=== PATIENT | male | born 1955 | race American Indian/Alaskan Native ===

== ENCOUNTER 2021-01-20 19:18 | Inpatient (IN) | payer MEDICARE ==
--- NOTE | 2021-01-20 19:31 | Emergency Department Report ---
HPI - General Time Seen by Provider: 01/20/21 19:20 - HPI HPI: Charge nurse triage/room 1 The patient is a 65-year-old male present with a chief complaint mental status/right facial droop. Patient has a history of previous CVA with right- sided deficits however this evening the patient was noted to have right-sided facial droop. The family who accompanies the patient states that the patient rarely speaks and often just sits in his chair slumped over at baseline. They were reportedly at a democrat/wedding and the best time that the family member can recall where the patient was behaving normally was approximately 15:00 today. Patient does not respond verbally to questions and only localizes with sternal rub ED Past Medical Hx - Past Medical History Hx Hypertension: Yes Hx CVA: Yes - Surgical History Past Surgical History?: No - Family History Family history: no significant - Social History Smoking Status: Unknown if ever smoked ED Review of Systems ROS: Stated complaint: STROKE Other details as noted in HPI Comment: Unobtainable due to pts medical conditions Physical Exam - Physical Exam Physical Exam: GENERAL: The patient is well-developed well-nourished male lying on stretcher drooling. [] HEENT: Normocephalic. Atraumatic. Patient has moist mucous membranes. NECK: Supple. Trachea midline CHEST/LUNGS: Clear to auscultation. There is no respiratory distress noted. HEART/CARDIOVASCULAR: Regular. There is no tachycardia. There is no gallop rub or murmur. ABDOMEN: Abdomen is soft, nontender. Patient has normal bowel sounds. There is no abdominal distention. SKIN: There is no rash. There is no edema. There is no diaphoresis. NEURO: The patient is is not cooperative with neurologic exam. Patient local izes to sternal rub. MUSCULOSKELETAL: There is no evidence of acute injury. ED Course - Consultations Consultation #1: 01/20/21 19:40 Case discussed with telemetry neurologist- no TPA, doubt LVO. Admit for MRI ED Medical Decision Making - Lab Data Result diagrams: 01/20/21 19:46 01/20/21 19:46 Laboratory Tests 01/20/21 01/20/21 01/20/21 19:46 19:46 19:46 WBC 6.5 RBC 4.73 Hgb 15.2 Hct 47.1 H MCV 100 H MCH 32 MCHC 32 RDW 13.3 Plt Count 196 Lymph % (Auto) 21.0 [place] % (Auto) 6.5 Eos % (Auto) 1.6 Baso % (Auto) 0.6 Lymph # (Auto) 1.4 [place] # (Auto) 0.4 Eos # (Auto) 0.1 Baso # (Auto) 0.0 Seg Neutrophils % 70.3 H Seg Neutrophils # 4.5 PT 14.5 INR 1.02 APTT 28.5 Thrombin Time 18.1 Sodium 147 H Potassium 4.2 Chloride 101.4 Carbon Dioxide 23 Anion Gap 27 BUN 12 Creatinine 1.2 Estimated GFR > 60 BUN/Creatinine Ratio 10 Glucose 228 H Calcium 10.2 Total Bilirubin 0.30 AST 15 ALT 11 Alkaline Phosphatase 77 Ammonia Total Creatine Kinase 71 CK-MB (CK-2) 1.5 CK-MB (CK-2) Rel Index 2.1 Troponin T < 0.010 Total Protein 8.5 H Albumin 4.6 Albumin/Globulin Ratio 1.2 Plasma/Serum Alcohol 01/20/21 01/20/21 19:46 19:46 WBC RBC Hgb Hct MCV MCH MCHC RDW Plt Count Lymph % (Auto) [place] % (Auto) Eos % (Auto) Baso % (Auto) Lymph # (Auto) [place] # (Auto) Eos # (Auto) Baso # (Auto) Seg Neutrophils % Seg Neutrophils # PT INR APTT Thrombin Time Sodium Potassium Chloride Carbon Dioxide Anion Gap BUN Creatinine Estimated GFR BUN/Creatinine Ratio Glucose Calcium Total Bilirubin AST ALT Alkaline Phosphatase Ammonia 39.0 Total Creatine Kinase CK-MB (CK-2) CK-MB (CK-2) Rel Index Troponin T Total Protein Albumin Albumin/Globulin Ratio Plasma/Serum Alcohol < 0.01 - EKG Data -: EKG Interpreted by Me EKG shows normal: sinus rhythm Rate: normal - EKG Data When compared to previous EKG there are: previous EKG unavailable Interpretation: nonspecific ST-T wave dominique (T wave inversion lead I), other (Poor baseline given patient movement) - Radiology Data Radiology results: report reviewed (CT head), image reviewed (CT head) [facility] [address] [place] [address] Cat Scan Report Signed Patient: DAVON PALACIOS JR MR#: [id number] : 1955 Acct:[id number] Age/Sex: 65 / M ADM Date: 01/20/21 Loc: ED Attending Dr: Ordering Physician: KATHY HUNTER MD Date of Service: 01/20/21 Procedure(s): CT head/brain wo con Accession Number(s): [id number] cc: KATHY HUNTER MD CT head/brain wo con INDICATION: Altered mental status, right facial droop. TECHNIQUE: Rout ine CT head. All CT scans at this location are performed using CT dose reduction for ALARA by means of automated exposure control. COMPARISON: None. FINDINGS: Please note patient is severely contracted and cannot be positioned correctly for scanning. Intracranial: Large area encephalomalacia in the right MCA territory from prior infarction. Prior left occipital lobe infarction and as well as small area of prior infarction seen in the medial region of the precentral and postcentral gyri. No definite acute infarction. No intracranial hemorrhage. No extra axial collection. Ex vacuo dilation of the ventricles.. No herniation. Sinuses: Paranasal sinuses and mastoid air cells are essentially clear. Orbits: Globes are intact. Calvarium: No acute fracture. IMPRESSION: 1. No evidence of acute infarction. 2. Multifocal remote infarctions. Informed Dr. Hunter at 6:50 Signer Name: Hero Renee MD Signed: 01/20/2021 7:51 PM Workstation Name: [id number] Transcribed By: ALONZO Dictated By: Hero Renee MD Electronically Authenticated By: Hero Renee MD Signed Date/Time: 01/20/211950 DD/ 46 TD/TT: Print Cancel - Differential Diagnosis CVA, altered mental status, hepatic encephalopathy, ICH Critical care attestation.: If time is entered above; I have spent that time in minutes in the direct care of this critically ill patient, excluding procedure time. ED Disposition Clinical Impression: Altered mental status Disposition: ADMITTED INPATIENT Is pt being admited?: Yes Does the pt Need Aspirin: Yes Condition: Fair Referrals: PRIMARY CARE, [Primary Care Provider] - 3-5 Days Time of Disposition: 21:17 (Hospitalist called (Dr. Flores))
[2021-01-20] MEDS ORDERED: ASPIRIN 300 MG RECT SUPP PR ONE (19:40)
[2021-01-20 19:54] LABS: Basophils % (Auto) 0.6 % (0.0-1.8); Eosinophils # (Auto) 0.1 K/mm3 (0.0-0.4); Eosinophils % (Auto) 1.6 % (0.0-4.3); Hematocrit 47.1 % (35.5-45.6); Hemoglobin 15.2 gm/dl (11.8-15.2); Lymphocytes # (Auto) 1.4 K/mm3 (1.2-5.4); Mean Corpuscular HGB Conc 32 % (32-34); Mean Corpuscular Volume 100 fl (84-94); Monocytes # (Auto) 0.4 K/mm3 (0.0-0.8); Monocytes % (Auto) 6.5 % (0.0-7.3); Platelet Count 196 K/mm3 (140-440); Red Blood Count 4.73 M/mm3 (3.65-5.03); Red Cell Distribution Width 13.3 % (13.2-15.2)
--- NOTE | 2021-01-20 19:56 | Cat Scan Report ---
CT head/brain wo con INDICATION: Altered mental status, right facial droop. TECHNIQUE: Routine CT head. All CT scans at this location are performed using CT dose reduction for A CYNTHIA by means of automated exposure control. COMPARISON: None. FINDINGS: Please note patient is severely contracted and cannot be positioned correctly for scanning. Intracranial: Large area encephalomalacia in the right MCA territory from prior infarction. Prior lef t occipital lobe infarction and as well as small area of prior infarction seen in the medial region o f the precentral and postcentral gyri. No definite acute infarction. No intracranial hemorrhage. No e xtra axial collection. Ex vacuo dilation of the ventricles.. No herniation. Sinuses: Paranasal sinuses and mastoid air cells are essentially clear. Orbits: Globes are intact. Calvarium: No acute fracture. IMPRESSION: 1. No evidence of acute infarction. 2. Multifocal remote infarctions. Informed Dr. Lane at 6:50 Signer Name: Hero Renee MD Signed: 01/20/2021 7:51 PM Workstation Name: [id number]
[2021-01-20 20:28] LABS: INR 1.02 (0.87-1.13); Partial Thromboplastin Time 28.5 Sec. (24.2-36.6)
[2021-01-20 20:29] LABS: Thrombin Time 18.1 Sec. (15.1-19.6)
[2021-01-20 20:32] LABS: Creatine Kinase MB 1.5 ng/mL (0.0-4.0)
--- NOTE | 2021-01-20 20:32 | Consultation ---
History of Present Illness History of present illness: [place] [facility] Consult Note # Demographics Consult Type: Acute Stroke Level 1 (0-4.5 hrs) Patient Location: Emergency Room First Name: Blake Hernandez Last Name: Ariel Date of : 1955 Age: 65 Gender: Male Facility: [facility] Time of Initial Page ( Time): 01/20/2021, 19:21 Time of Return Call ( Time): 01/20/2021, 19:22 # HPI History: 65 year-old male with prior strokes and residual right-sided weakness presents with right facial weakness worse than baseline. CT is negative for acute pathology. He was last known normal at 2 PM. # Scores Time of exam and NIHSS ( Time): 01/20/2021, 19:40 Level of Consciousness 1a: [0] = Alert; keenly responsive LOC Questions 1b: [2] = Answers neither correctly LOC Commands 1c: [2] = Performs neither correctly Best Gaze 2: [0] = Normal Visual 3: [0] = No visual loss Facial Palsy 4: [1] = Minor paralysis Motor Arm Left 5a: [2] = Some effort against gravity Motor Arm Right 5b: [2] = Some effort against gravity Motor Leg Left 6a: [3] = No effort against gravity Motor Leg Right 6b: [3] = No effort against gravity Limb Ataxia 7: [0] = Absent Sensory 8: [0] = Normal Best Language 9: [2] = Severe aphasia Dysarthria 10: [2] = Severe dysarthria Extinction and Inattention 11: [0] = No abnormality NIHSS Total: 19 # Exam Vitals: vital signs reviewed # PMH-FH-SH Past Medical History: hyperlipidemia stroke # Assessment Impression: Right facial weakness - suspect symptoms related to chronic stroke, cannot exclude new stroke # Plan Thrombolytic/Intervention: NOT IV Thrombolysis or IA Intervention candidate Thrombolytic Exclusion: > 4.5 hours Intraarterial Exclusion: non-disabling Imaging: (urgency: routine): If symptoms persist without clear cause, consider brain MRI. Other: telemetry monitoring I have discussed my recommendations with the referring provider Disposition: observation Medications and Allergies Allergies Allergy/AdvReac Type Severity Reaction Status Date / Time No Known Allergies Allergy Verified 01/20/21 20:21 Physical Examination - Vital Signs Vital Signs: Vital Signs Resp 16 01/20/21 19:43 Results - Laboratory Findings CBC and BMP: 01/20/21 19:46 01/20/21 19:46 Abnormal Lab Findings: Abnormal Labs 01/20/21 19:46 Hct 47.1 H MCV 100 H Seg Neutrophils % 70.3 H
[2021-01-20 20:33] LABS: Alanine Aminotransferase 11 units/L (7-56); Albumin 4.6 g/dL (3.9-5); BUN/Creatinine Ratio 10; Blood Urea Nitrogen 12 mg/dL (9-20); Calcium 10.2 mg/dL (8.4-10.2); Hemolysis Index 12
[2021-01-20] MEDS ORDERED: SODIUM CHLORIDE 0.9% 1000 ML 1,000 ML IV ONE (20:41)
[2021-01-20] MEDS ORDERED: oxyCODONE /ACETAMINOPHEN 5-325MG TAB PO PRN (21:39)
[2021-01-20] MEDS ORDERED: ALBUTEROL 2.5 MG/3 ML NEBU IH PRN (21:39)
[2021-01-20] MEDS ORDERED: DEXTROSE 50% IN WATER (25GM) 50 ML SYRINGE IV PRN (21:39)
[2021-01-20] MEDS ORDERED: HYDROmorphone 1 MG/1 ML INJ IV PRN (21:39)
[2021-01-20] MEDS ORDERED: ACETAMINOPHEN 325 MG TAB PO PRN (21:39)
[2021-01-20] MEDS ORDERED: ONDANSETRON 4 MG/2 ML INJ IV PRN (21:39)
--- NOTE | 2021-01-20 21:49 | History and Physical Report ---
History of Present Illness Date of examination: 01/20/21 Date of admission: 01/20/21 Chief complaint: Altered mental status Right facial droop History of present illness: 65-year-old male with past medical history of stroke and right-sided weakness was brought to the emergency room because of altered mental status/right facial droop. The family who accompanies the patient states that the patient rarely speaks and often just sits in his chair slumped over at baseline. They were reportedly at a democrat/wedding and the best time that the family member can recall where the patient was behaving normally was approximately 15:00 today. Patient does not respond verbally to questions and only localizes with sternal rub In the emergency room initial CT scan shows no evidence of acute infection. Multifocal remote infarction. Subsequently patient was seen and evaluated by telemetry neurology who recommends MRI of the brain. Med rec is not available Past History Past Medical History: hyperlipidemia, stroke Medications and Allergies Allergies Allergy/AdvReac Type Severity Reaction Status Date / Time No Known Allergies Allergy Verified 01/20/21 20:21 Active Meds: Active Medications Sodium Chloride (Nacl 0.9% 1000 Ml) 1,000 mls @ 250 mls/hr IV ONCE ONE Stop: 01/21/21 00:40 Last Admin: 01/20/21 20:59 Dose: 250 mls/hr Documented by: Review of Systems All systems: negative Constitutional: weakness Neurological: change in mentation, other (Right facial droop) Exam - Constitutional Vitals: Temp Pulse Resp BP Pulse Ox 98.0 F 76 14 166/89 98 01/20/21 20:11 01/20/21 20:00 01/20/21 20:00 01/20/21 20:11 01/20/21 21:33 General appearance: Present: no acute distress, well-nourished - EENT Eyes: Present: PERRL ENT: hearing intact, clear oral mucosa - Neck Neck: Present: supple, normal ROM - Respiratory Respiratory effort: normal Respiratory: bilateral: CTA - Cardiovascular Heart Sounds: Present: S1 & S2. Absent: rub, click - Extremities Extremities: pulses symmetrical, No edema Peripheral Pulses: within normal limits - Abdominal General gastrointestinal: Present: soft, non-tender, non-distended, normal bowel sounds Male genitourinary: Present: normal - Integumentary Integumentary: Present: clear, warm, dry - Musculoskeletal Musculoskeletal: gait normal, strength equal bilaterally - Psychiatric Psychiatric: other (Altered mental status) - Neurologic Neurologic: CNII-XII intact, other (Altered mental status, right facial droop) HEART Score - HEART Score Troponin: Troponin T < 0.010 ng/mL (0.00-0.029) 01/20/21 19:46 Results - Labs CBC & Chem 7: 01/20/21 19:46 01/20/21 19:46 Labs: Laboratory Last Values WBC 6.5 K/mm3 (4.5-11.0) 01/20/21 19:46 RBC 4.73 M/mm3 (3.65-5.03) 01/20/21 19:46 Hgb 15.2 gm/dl (11.8-15.2) 01/20/21 19:46 Hct 47.1 % (35.5-45.6) H 01/20/21 19:46 MCV 100 fl (84-94) H 01/20/21 19:46 MCH 32 pg (28-32) 01/20/21 19:46 MCHC 32 % (32-34) 01/20/21 19:46 RDW 13.3 % (13.2-15.2) 01/20/21 19:46 Plt Count 196 K/mm3 (140-440) 01/20/21 19:46 Lymph % (Auto) 21.0 % (13.4-35.0) 01/20/21 19:46 [place] % (Auto) 6.5 % (0.0-7.3) 01/20/21 19:46 Eos % (Auto) 1.6 % (0.0-4.3) 01/20/21 19:46 Baso % (Auto) 0.6 % (0.0-1.8) 01/20/21 19:46 Lymph # (Auto) 1.4 K/mm3 (1.2-5.4) 01/20/21 19:46 [place] # (Auto) 0.4 K/mm3 (0.0-0.8) 01/20/21 19:46 Eos # (Auto) 0.1 K/mm3 (0.0-0.4) 01/20/21 19:46 Baso # (Auto) 0.0 K/mm3 (0.0-0.1) 01/20/21 19:46 Seg Neutrophils % 70.3 % (40.0-70.0) H 01/20/21 19:46 Seg Neutrophils # 4.5 K/mm3 (1.8-7.7) 01/20/21 19:46 PT 14.5 Sec. (12.2-14.9) 01/20/21 19:46 INR 1.02 (0.87-1.13) 01/20/21 19:46 APTT 28.5 Sec. (24.2-36.6) 01/20/21 19:46 Thrombin Time 18.1 Sec. (15.1-19.6) 01/20/21 19:46 Sodium 147 mmol/L (137-145) H 01/20/21 19:46 Potassium 4.2 mmol/L (3.6-5.0) 01/20/21 19:46 Chloride 101.4 mmol/L (98-107) 01/20/21 19:46 Carbon Dioxide 23 mmol/L (22-30) 01/20/21 19:46 Anion Gap 27 mmol/L 01/20/21 19:46 BUN 12 mg/dL (9-20) 01/20/21 19:46 Creatinine 1.2 mg/dL (0.8-1.3) 01/20/21 19:46 Estimated GFR > 60 ml/min 01/20/21 19:46 BUN/Creatinine Ratio 10 % 01/20/21 19:46 Glucose 228 mg/dL (75-100) H 01/20/21 19:46 Calcium 10.2 mg/dL (8.4-10.2) 01/20/21 19:46 Total Bilirubin 0.30 mg/dL (0.1-1.2) 01/20/21 19:46 AST 15 units/L (5-40) 01/20/21 19:46 ALT 11 units/L (7-56) 01/20/21 19:46 Alkaline Phosphatase 77 units/L (35-129) 01/20/21 19:46 Ammonia 39.0 umol/L (25-60) 01/20/21 19:46 Total Creatine Kinase 71 units/L (55-170) 01/20/21 19:46 CK-MB (CK-2) 1.5 ng/mL (0.0-4.0) 01/20/21 19:46 CK-MB (CK-2) Rel Index 2.1 (0-4) 01/20/21 19:46 Troponin T < 0.010 ng/mL (0.00-0.029) 01/20/21 19:46 Total Protein 8.5 g/dL (6.3-8.2) H 01/20/21 19:46 Albumin 4.6 g/dL (3.9-5) 01/20/21 19:46 Albumin/Globulin Ratio 1.2 % 01/20/21 19:46 Plasma/Serum Alcohol < 0.01 % (0-0.07) 01/20/21 19:46 - Imaging and Cardiology CT Scan - head: report reviewed Assessment and Plan VTE prophylaxis?: Mechanical Plan of care discussed with patient/family: Yes - Patient Problems (1) Acute metabolic encephalopathy Current Visit: Yes Status: Acute Plan to address problem: Suspect is secondary to a stroke. Admit the patient to the medical telemetry. NPO. Normal saline at the rate of 100 cc/h. Aspirin 325 mg p.o. daily. Lipitor 40 mg p.o. daily. MRI of the brain MRA of the brain and neck with and without contrast. PT OT any speech evaluation. Neurology evaluation. Echocardiogram (2) Stroke Current Visit: Yes Status: Acute Plan to address problem: NPO. Normal saline at the rate of 100 cc/h. Aspirin 325 mg p.o. daily. Lipitor 40 mg p.o. daily. MRI of the brain MRA of the brain and neck with and without contrast. PT OT any speech evaluation. Neurology evaluation. Echocardiogram (3) Hyperglycemia Current Visit: Yes Status: Acute Plan to address problem: Humalog sliding scale Accu-Chek every 6 hours with moderate dose coverage. Diabetic education. BMP in the morning (4) Hyperlipidemia Current Visit: Yes Status: Acute Plan to address problem: Lipitor 40 mg p.o. daily. We recheck the lipid panel. (5) DVT prophylaxis Current Visit: Yes Status: Acute Plan to address problem: SCD for DVT prophylaxis. Pepcid 20 mg p.o. twice daily for GI prophylaxis. Patient is a full code
[2021-01-20] MEDS: FAMOTIDINE 20 MG/2 ML INJ IV SCH (22:58)
[2021-01-20] MEDS: hydrALAZINE 20 MG/1 ML INJ IV PRN (23:10)
[2021-01-21] MEDS: INSULIN LISPRO 100 UNIT/ML SUB-Q SCH ×4 (01:29→17:53)
[2021-01-21] MEDS ORDERED: IPRATROPIUM/ALBUTEROL SULFATE 3 ML AMPUL.NEB IH SCH (02:00)
[2021-01-21] MEDS: SODIUM CHLORIDE 0.9% 1000 ML 1,000 ML IV SCH ×2 (05:51→16:53)
[2021-01-21 06:54] LABS: Basophils % (Auto) 0.3 % (0.0-1.8); Eosinophils # (Auto) 0.1 K/mm3 (0.0-0.4); Eosinophils % (Auto) 1.2 % (0.0-4.3); Hematocrit 42.5 % (35.5-45.6); Hemoglobin 14.1 gm/dl (11.8-15.2); Lymphocytes # (Auto) 1.3 K/mm3 (1.2-5.4); Lymphocytes % (Auto) 15.4 % (13.4-35.0); Mean Corpuscular HGB Conc 33 % (32-34); Mean Corpuscular Volume 98 fl (84-94); Monocytes # (Auto) 0.7 K/mm3 (0.0-0.8); Platelet Count 191 K/mm3 (140-440); Red Blood Count 4.35 M/mm3 (3.65-5.03); Red Cell Distribution Width 13.4 % (13.2-15.2)
[2021-01-21 07:01] LABS: BUN/Creatinine Ratio 13; Blood Urea Nitrogen 10 mg/dL (9-20); Calcium 9.1 mg/dL (8.4-10.2); Chol/HDL Ratio 3.32 %; HDL Cholesterol 59 mg/dL (40-59); Hemolysis Index 18; LDL Cholesterol,Direct 127 mg/dL (50-130)
--- NOTE | 2021-01-21 08:41 | Consultation ---
History of Present Illness Consult date: 01/21/21 Reason for Consult: altered mentation and increase right facial droop. History of present illness: Altered mental status Right facial droop History of present illness: 65-year-old male with past medical history of stroke and left-sided weakness was brought to the emergency room because of altered mental status/right facial droop. The family who accompanies the patient states that the patient rarely speaks and often just sits in his chair slumped over at baseline. They were reportedly at a libertarian/wedding and the best time that the family member can recall where the patient was behaving normally was approximately 15:00 today. Patient does not respond verbally to questions and only localizes with sternal rub. In the emergency room initial CT scan shows no evidence of acute infection. Multifocal remote infarction. Subsequently patient was seen and evaluated by telemetry neurology who recommends MRI of the brain. pt. started on ASA NIH# 19 Med rec is not available Past History Past Medical History: hyperlipidemia,multiple stroke Medications and Allergies Allergies Allergy/AdvReac Type Severity Reaction Status Date / Time No Known Allergies Allergy Verified 01/20/21 20:21 Active Meds: Active Medications Sodium Chloride (Nacl 0.9% 1000 Ml) 1,000 mls @ 250 mls/hr IV ONCE ONE Stop: 01/21/21 00:40 Last Admin: 01/20/21 20:59 Dose: 250 mls/hr Documented by: Review of Systems All systems: negative Constitutional: weakness Neurological: change in mentation, other (Right facial droop) Past History Past Medical History: hyperlipidemia, stroke Medications and Allergies Allergies Allergy/AdvReac Type Severity Reaction Status Date / Time No Known Allergies Allergy Verified 01/20/21 20:21 Active Meds: Active Medications Acetaminophen (Acetaminophen 325 Mg Tab) 650 mg PO Q4H PRN PRN Reason: Pain MILD(1-3)/Fever >100.5/SMYTH Albuterol (Albuterol 2.5 Mg/3 Ml Nebu) 2.5 mg IH Q4HRT PRN PRN Reason: Shortness Of Breath Aspirin (Aspirin 325 Mg Tab) 325 mg PO QDAY JOAN Atorvastatin Calcium (Atorvastatin 40 Mg Tab) 40 mg PO QHS JOAN Last Admin: 01/20/21 22:36 Dose: Not Given Documented by: Dextrose (Dextrose 50% In Water (25gm) 50 Ml Syringe) 50 ml IV Q30MIN PRN; Protocol PRN Reason: Hypoglycemia Famotidine (Famotidine 20 Mg/2 Ml Inj) 20 mg IV BID [facility] Last Admin: 01/20/21 22:58 Dose: 20 mg Documented by: Hydralazine HCl (Hydralazine 20 Mg/1 Ml Inj) 10 mg IV Q6H PRN PRN Reason: sys >160 Last Admin: 01/20/21 23:10 Dose: 10 mg Documented by: Hydromorphone HCl (Hydromorphone 1 Mg/1 Ml Inj) 0.5 mg IV Q3H PRN PRN Reason: Pain , Severe (7-10) Sodium Chloride (Nacl 0.9% 1000 Ml) 1,000 mls @ 100 mls/hr IV DIRECT JOAN Last Admin: 01/21/21 05:51 Dose: 100 mls/hr Documented by: Insulin Human Lispro (Insulin Lispro 100 Unit/Ml) 0 unit SUB-Q Q6HR [facility]; Protocol Last Admin: 01/21/21 05:53 Dose: Not Given Documented by: Ondansetron HCl (Ondansetron 4 Mg/2 Ml Inj) 4 mg IV Q8H PRN PRN Reason: Nausea And Vomiting Oxycodone/Acetaminophen (Oxycodone /Acetaminophen 5-325mg Tab) 1 tab PO Q6H PRN PRN Reason: Pain, Moderate (4-6) Sodium Chloride (Sodium Chloride 0.9% 10 Ml Flush Syringe) 10 ml IV BID JOAN Sodium Chloride (Sodium Chloride 0.9% 10 Ml Flush Syringe) 10 ml IV PRN PRN PRN Reason: LINE FLUSH Physical Examination - Vital Signs Vital Signs: Vital Signs Resp 16 01/20/21 19:43 - Constitutional General appearance: uncomfortable - EENT EENT: Present: PERRL, mucous membranes moist - Respiratory Respiratory: Present: lungs clear, rhonchi - Cardiovascular Cardiovascular: Present: regular rate, normal S1, normal S2 Extremities: Present: no peripheral edema bilatateraly, no clubbing, cyanosis - Gastrointestinal Gastrointestinal: Present: normoactive bowel sounds - Integumentary Integumentary: Present: normal - Neurologic Cranial nerve examination: PERRL, EOMI, other (left facial droop , ) Speech examination: other (not respond to verbal command at time had staring spell and right side intermittent jerking ) Detailed motor examination: other (left side flaccid upper and lower , increase tone right side and resist movment , withdraw right leg and arm to stimuli , difficult to assess visual field .) - Level of Consciousness 1a. Level of Consciousness: arousable/minor stimuli - LOC Questions 1b. LOC Questions: answers no questions correctly - LOC Command 1c. LOC Commands: performs no tasks correctly - Best Gaze 2. Best Gaze: partial gaze palsy - Visual 3. Visual: partial hemianopia - Facial Palsy 4. Facial Palsy: minor paralysis - Motor Arm 5a. Motor Arm Left: some gravity effort 5b. Motor Arm Right: drift - Motor Leg 6a. Motor Leg Left: no gravity effort 6b. Motor Leg Right: drift - Limb Ataxia 7. Limb Ataxia: absent - Sensory 8. Sensory: normal - Best Language 9. Best Language: no aphasia - Dysarthria 10. Dysarthria: normal - Extinction and Inattention 11. Extinction/Inattention: no abnormality - Scoring Total Score: 15 Stroke Severity: Moderate Stroke Results - Laboratory Findings CBC and BMP: 01/21/21 05:24 01/21/21 05:24 Abnormal Lab Findings: Abnormal Labs 01/20/21 01/20/21 01/21/21 19:46 19:46 01:37 EST Hct 47.1 H MCV 100 H [place] % (Auto) Seg Neutrophils % 70.3 H Sodium 147 H Glucose 228 H POC Glucose 167 H Total Protein 8.5 H 01/21/21 01/21/21 01/21/21 05:24 05:24 06:36 Hct MCV 98 H [place] % (Auto) 8.0 H Seg Neutrophils % 75.1 H Sodium Glucose 126 H POC Glucose 122 H Total Protein Assessment and Plan Assessment and Plan VTE prophylaxis?: Mechanical Plan of care discussed with patient/family: Yes - Patient Problems # Acute intermittent encephalopathy -noted on evaluation today he is with intermittent right arm stiffness and starring spell last 10-15 seconds -R/O Seizure -CT brain is remarkable for multi infarct mostly cortical in several distribution r/o AF -On ASA 325 mg po or rectally - quality assurance monitor body -CTA brain and neck pending -MRI brain wo Gd pending -echo -EEG -Ativan 2 mg Iv prn for seizure -Start Keppra IV loading dose 1000 mg now then 500 mg IV Bid. 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 - Normal saline at the rate of 100 cc/h. - Aspirin 325 mg p.o. daily. Lipitor 40 mg p.o. daily. - MRI of the brain - PT OT any speech evaluation. - - Echocardiogram -cardiac monitoring r/o AF. # Hyperglycemia -Humalog sliding scale Accu-Chek every 6 hours with moderate dose coverage. -Diabetic education. - BMP in the morning -A1C#6 # Hyperlipidemia -Lipitor 40 mg p.o. daily. - lipid panel.LDL#127 # DVT prophylaxis -SCD for DVT prophylaxis. - Pepcid 20 mg p.o. twice daily for GI prophylaxis. -Patient is a full code will follow
[2021-01-21] MEDS: FAMOTIDINE 20 MG/2 ML INJ IV SCH ×2 (09:00→21:34)
[2021-01-21] MEDS: hydrALAZINE 20 MG/1 ML INJ IV PRN ×2 (09:01→19:52)
[2021-01-21] MEDS: ASPIRIN 325 MG TAB PO SCH (09:01)
[2021-01-21] MEDS ORDERED: LORazepam 2 MG/ML VIAL IV PRN (09:21)
[2021-01-21] MEDS ORDERED: levETIRAcetam 750 MG in DEXTROSE 5% IN WATER 100 ML IV SCH (10:00)
[2021-01-21] MEDS ORDERED: LORazepam 2 MG/ML VIAL IV ONE (10:04)
[2021-01-21] MEDS: levETIRAcetam 500 MG in DEXTROSE 5% IN WATER 100 ML IV SCH ×2 (10:24→21:34)
[2021-01-21] MEDS ORDERED: FLU VACC QUAD 2021-22(6MOS UP)/PF 60 MCG/0.5 ML SYRINGE IM ONE (12:00)
--- NOTE | 2021-01-21 14:01 | Progress Note ---
Assessment and Plan Assessment and plan: 65-year-old male with past medical history of stroke and right-sided weakness was brought to the emergency room because of altered mental status/right facial droop. The patient is being managed for CVA and seizure disorder. #Stroke/CVA #Seizure disorder -Negative CT head Noncon (01/20/2021). Remarkable for multiple infarcts in cortex in several areas of distribution. - Pending MRI brain, MRA head and neck with and without contrast, CTA brain with contrast, and TTE with bubble to rule out PFO. -Neurology consulted; appreciate recs -Pending hemoglobin A1c and lipid profile. Continue ASA 325 mg daily. -Unable to perform EEG on the weekend. Will be performed Friday (01/22/2021). -Currently n.p.o. given aspiration risk. Pending PT/OT/speech therapy evaluation. -Status post IV Ativan 2 mg x 2 in the setting of seizure at bedside. Currently stable. -Status post Keppra 1 g load. Continue Keppra 500 mg twice daily. IV Ativan 2 mg as needed for active seizure. -Continue to monitor #DVT -Prior DVT and currently treated with Eliquis 2.5 mg twice daily -Restarting home Eliquis since CT head Noncon was negative. #Hyperglycemia -Pending hemoglobin A1c -Continue Accu-Cheks every 6 hours since patient is n.p.o.. Blood glucose goal [id number] while inpatient. -Continue to monitor #Hyperlipidemia -Pending lipid panel #Advanced care planning -Disease education conducted, care plan discussed, diagnoses discussed, prognosis discussed, and patient acknowledges understanding with care plan -Time: +60 minutes Disposition Plan: Continue medical management Total Time Spent with Patient (Minutes): 60 minutes History Interval history: No acute events overnight. Hospitalist Physical - Constitutional Vitals: Temp Pulse Resp BP Pulse Ox 97.5 F L 97 H 18 162/94 96 01/21/21 08:02 01/21/21 10:14 01/21/21 10:14 01/21/21 10:14 01/21/21 11:13 General appearance: Present: no acute distress, well-nourished - EENT Eyes: Present: PERRL, EOM intact ENT: hearing intact, clear oral mucosa - Neck Neck: Present: supple - Respiratory Respiratory effort: normal Respiratory: bilateral: CTA - Cardiovascular Rhythm: regular Heart Sounds: Present: S1 & S2 - Extremities Extremities: no ischemia, pulses intact, pulses symmetrical, No edema, normal temperature, normal color Peripheral Pulses: within normal limits - Abdominal General gastrointestinal: soft, non-tender, non-distended, normal bowel sounds - Integumentary Integumentary: Present: clear, warm, dry - Psychiatric Psychiatric: other (Not responsive to verbal cues.) - Neurologic Neurologic: other (Not responsive to verbal cues. Actively seizing this m orning.) - Allied Health Allied health notes reviewed: nursing HEART Score - HEART Score Troponin: Troponin T < 0.010 ng/mL (0.00-0.029) 01/20/21 19:46 Results - Labs CBC & Chem 7: 01/21/21 05:24 01/21/21 05:24 Labs: Laboratory Last Values WBC 8.5 K/mm3 (4.5-11.0) 01/21/21 05:24 RBC 4.35 M/mm3 (3.65-5.03) 01/21/21 05:24 Hgb 14.1 gm/dl (11.8-15.2) 01/21/21 05:24 Hct 42.5 % (35.5-45.6) 01/21/21 05:24 MCV 98 fl (84-94) H 01/21/21 05:24 MCH 32 pg (28-32) 01/21/21 05:24 MCHC 33 % (32-34) 01/21/21 05:24 RDW 13.4 % (13.2-15.2) 01/21/21 05:24 Plt Count 191 K/mm3 (140-440) 01/21/21 05:24 Lymph % (Auto) 15.4 % (13.4-35.0) 01/21/21 05:24 [place] % (Auto) 8.0 % (0.0-7.3) H 01/21/21 05:24 Eos % (Auto) 1.2 % (0.0-4.3) 01/21/21 05:24 Baso % (Auto) 0.3 % (0.0-1.8) 01/21/21 05:24 Lymph # (Auto) 1.3 K/mm3 (1.2-5.4) 01/21/21 05:24 [place] # (Auto) 0.7 K/mm3 (0.0-0.8) 01/21/21 05:24 Eos # (Auto) 0.1 K/mm3 (0.0-0.4) 01/21/21 05:24 Baso # (Auto) 0.0 K/mm3 (0.0-0.1) 01/21/21 05:24 Seg Neutrophils % 75.1 % (40.0-70.0) H 01/21/21 05:24 Seg Neutrophils # 6.4 K/mm3 (1.8-7.7) 01/21/21 05:24 PT 14.5 Sec. (12.2-14.9) 01/20/21 19:46 INR 1.02 (0.87-1.13) 01/20/21 19:46 APTT 28.5 Sec. (24.2-36.6) 01/20/21 19:46 Thrombin Time 18.1 Sec. (15.1-19.6) 01/20/21 19:46 Sodium 144 mmol/L (137-145) 01/21/21 05:24 Potassium 4.0 mmol/L (3.6-5.0) 01/21/21 05:24 Chloride 104.5 mmol/L (98-107) 01/21/21 05:24 Carbon Dioxide 25 mmol/L (22-30) 01/21/21 05:24 Anion Gap 19 mmol/L 01/21/21 05:24 BUN 10 mg/dL (9-20) 01/21/21 05:24 Creatinine 0.8 mg/dL (0.8-1.3) 01/21/21 05:24 Estimated GFR > 60 ml/min 01/21/21 05:24 BUN/Creatinine Ratio 13 % 01/21/21 05:24 Glucose 126 mg/dL (75-100) H 01/21/21 05:24 POC Glucose 145 mg/dL (70-105) H 01/21/21 11:45 Hemoglobin A1c 6.0 % (4-6) 01/21/21 05:24 Calcium 9.1 mg/dL (8.4-10.2) 01/21/21 05:24 Total Bilirubin 0.30 mg/dL (0.1-1.2) 01/20/21 19:46 AST 15 units/L (5-40) 01/20/21 19:46 ALT 11 units/L (7-56) 01/20/21 19:46 Alkaline Phosphatase 77 units/L (35-129) 01/20/21 19:46 Ammonia 39.0 umol/L (25-60) 01/20/21 19:46 Total Creatine Kinase 71 units/L (55-170) 01/20/21 19:46 CK-MB (CK-2) 1.5 ng/mL (0.0-4.0) 01/20/21 19:46 CK-MB (CK-2) Rel Index 2.1 (0-4) 01/20/21 19:46 Troponin T < 0.010 ng/mL (0.00-0.029) 01/20/21 19:46 Total Protein 8.5 g/dL (6.3-8.2) H 01/20/21 19:46 Albumin 4.6 g/dL (3.9-5) 01/20/21 19:46 Albumin/Globulin Ratio 1.2 % 01/20/21 19:46 Triglycerides 75 mg/dL (2-149) 01/21/21 05:24 Cholesterol 196 mg/dL (50-199) 01/21/21 05:24 LDL Cholesterol Direct 127 mg/dL (50-130) 01/21/21 05:24 HDL Cholesterol 59 mg/dL (40-59) 01/21/21 05:24 Cholesterol/HDL Ratio 3.32 % 01/21/21 05:24 Plasma/Serum Alcohol < 0.01 % (0-0.07) 01/20/21 19:46 Stout/IV: Voiding Method Condom Catheter Active Medications - Current Medications Current Medications: Generic Name Dose Route Start Last Admin Trade Name Freq PRN Reason Stop Dose Admin Acetaminophen 650 mg 01/20/21 21:39 Acetaminophen 325 Mg Tab PO Q4H PRN Pain MILD(1-3)/Fever >100.5/SMYTH Albuterol 2.5 mg 01/20/21 21:39 Albuterol 2.5 Mg/3 Ml Nebu IH Q4HRT PRN Shortness Of Breath Aspirin 325 mg 01/21/21 10:00 01/21/21 09:01 Aspirin 325 Mg Tab PO 325 mg QDAY JOAN Administration Atorvastatin Calcium 40 mg 01/20/21 22:00 01/20/21 22:36 Atorvastatin 40 Mg Tab PO Not Given QHS JOAN Dextrose 50 ml 01/20/21 21:39 Dextrose 50% In Water (25gm) 50 Ml Syringe IV Q30MIN PRN Hypoglycemia Protocol Famotidine 20 mg 01/20/21 22:00 01/21/21 09:00 Famotidine 20 Mg/2 Ml Inj IV 20 mg BID JOAN Administration Hydralazine HCl 10 mg 01/20/21 23:03 01/21/21 09:01 Hydralazine 20 Mg/1 Ml Inj IV 10 mg Q6H PRN Administration sys >160 Hydromorphone HCl 0.5 mg 01/20/21 21:39 Hydromorphone 1 Mg/1 Ml Inj IV Q3H PRN Pain , Severe (7-10) Sodium Chloride 1,000 mls @ 100 mls/hr 01/20/21 21:45 01/21/21 05:51 Nacl 0.9% 1000 Ml IV 100 mls/hr DIRECT JOAN Administration Levetiracetam 500 mg/ Dextrose 105 mls @ 400 mls/hr 01/21/21 10:00 01/21/21 10:24 IV 400 mls/hr BID JOAN Administration Insulin Human Lispro 0 unit 01/21/21 00:00 01/21/21 12:18 Insulin Lispro 100 Unit/Ml SUB-Q Not Given Q6HR [facility] Protocol Lorazepam 2 mg 01/21/21 09:21 01/21/21 09:33 Lorazepam 2 Mg/Ml Vial IV 2 mg Q4H PRN Administration Seizures Ondansetron HCl 4 mg 01/20/21 21:39 Ondansetron 4 Mg/2 Ml Inj IV Q8H PRN Nausea And Vomiting Oxycodone/Acetaminophen 1 tab 01/20/21 21:39 Oxycodone /Acetaminophen 5-325mg Tab PO Q6H PRN Pain, Moderate (4-6) Sodium Chloride 10 ml 01/20/21 22:00 01/21/21 09:01 Sodium Chloride 0.9% 10 Ml Flush Syringe IV 10 ml BID JOAN Administration Sodium Chloride 10 ml 01/20/21 21:39 Sodium Chloride 0.9% 10 Ml Flush Syringe IV PRN PRN LINE FLUSH Nutrition/Malnutrition Assess - Dietary Evaluation Nutrition/Malnutrition Findings: Nutrition Notes Start: 01/21/21 10:29 Freq: Status: Active Protocol: Document 01/21/21 10:30 ALEXANDRA (Rec: 01/21/21 10:34 ALEXANDRA [id number]) Nutrition Notes Need for Assessment generated from: MD Order,Education Initial or Follow up Brief Note Current Diagnosis Stroke Other Pertinent Diagnosis AMS, DM Current Diet NPO Labs/Tests BP 172/68 Subjective/Other Information MD order for diet education. Pt unable to communicate. Spoke with who reports pt recently taken off blood pressure and DM medications by PCP. Pt eats a low salt, low fat, consistent CHO diet at home. She states he has lost weight recently which was intentional, RD encouraged no further weight loss. reports pt needs 1:1 assistance with meals. Nutrition Intervention Follow-Up By: 01/24/21 Additional Comments F/u: intakes and need for ONS - Attestation Statement I have reviewed and agreed w/ Malnutrition eval & tx plan: Yes
[2021-01-21] MEDS ORDERED: ENOXAPARIN 100 MG/1 ML INJ SUB-Q SCH (22:00)
[2021-01-21] MEDS ORDERED: ENOXAPARIN 60 MG/0.6 ML INJ SUB-Q SCH (22:00)
[2021-01-22] MEDS: INSULIN LISPRO 100 UNIT/ML SUB-Q SCH ×4 (00:03→18:40)
[2021-01-22] MEDS: SODIUM CHLORIDE 0.9% 1000 ML 1,000 ML IV SCH ×2 (02:54→16:43)
[2021-01-22] MEDS: hydrALAZINE 20 MG/1 ML INJ IV PRN ×2 (04:06→12:24)
[2021-01-22 06:44] LABS: Basophils % (Auto) 0.4 % (0.0-1.8); Eosinophils % (Auto) 0.6 % (0.0-4.3); Hemoglobin 13.5 gm/dl (11.8-15.2); Lymphocytes # (Auto) 1.1 K/mm3 (1.2-5.4); Lymphocytes % (Auto) 14.8 % (13.4-35.0); Mean Corpuscular HGB Conc 33 % (32-34); Mean Corpuscular Volume 98 fl (84-94); Monocytes # (Auto) 0.5 K/mm3 (0.0-0.8); Platelet Count 182 K/mm3 (140-440); Red Cell Distribution Width 13.3 % (13.2-15.2)
[2021-01-22 06:57] LABS: Blood Urea Nitrogen 6 mg/dL (9-20); Calcium 8.6 mg/dL (8.4-10.2); Hemolysis Index 34
[2021-01-22 06:58] LABS: BUN/Creatinine Ratio 9
--- NOTE | 2021-01-22 11:20 | Magnetic Resonance Report ---
MRA HEAD WITHOUT CONTRAST HISTORY: Altered mental status. Cerebrovascular accident. COMPARISON: none TECHNIQUE: Routine MRA of the head performed. 3-D/MIP reformats postprocessed. FINDINGS: MRA HEAD: Intracranial vertebral arteries: Normal and symmetrical vertebral arteries both contribute to the bas ilar artery origin. Basilar artery: Basilar artery has an unremarkable appearance. Posterior cerebral arteries: Normal flow related signal intensity is observed in the right posterior cerebral artery. Left posterior cerebral artery is not visualized. 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 Intracranial internal carotid arteries: There is an absence of flow related signal intensity in the p etrous and cavernous segments of the R ICA consistent with complete occlusion of the vessel in this r egion. Retrograde flow is suspected in the communicating, clinoid and ophthalmic segments. In light o f findings of extensive encephalomalacia throughout the right cerebral hemisphere the occlusion of th e R ICA is likely chronic. Anterior cerebral arteries: A hypoplastic A1 segment right anterior cerebral arteries noted. An intac t anterior communicating artery is observed. No abnormalities are seen along the course of the A2 seg ments. Middle cerebral arteries: There is diminished signal intensity in the mid and distal M1 segment of th e right middle cerebral artery compatible with occlusion of this vessel. There is an absence of flow related signal intensity in the sylvian and opercular branches of the right middle cerebral artery. Additional findings: None. IMPRESSION: 1. 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 2. Evidence of occlusion of the mid and distal M1 segment of the right middle cerebral artery as well as its sylvian and opercular branches. 3. Evidence of occlusion of the left posterior cerebral artery. Signer Name: Dell Mahoney MD Signed: 01/22/2021 11:16 AM Workstation Name: [id number]
[2021-01-22] MEDS: ASPIRIN 325 MG TAB PO SCH (11:24)
[2021-01-22] MEDS: ENOXAPARIN 60 MG/0.6 ML INJ SUB-Q SCH ×2 (11:24→22:29)
[2021-01-22] MEDS: FAMOTIDINE 20 MG/2 ML INJ IV SCH ×2 (11:24→22:29)
[2021-01-22] MEDS: levETIRAcetam 500 MG in DEXTROSE 5% IN WATER 100 ML IV SCH (11:24)
--- NOTE | 2021-01-22 11:27 | Magnetic Resonance Report ---
MRI BRAIN WITHOUT CONTRAST INDICATION / CLINICAL INFORMATION: stroke, CONFUSION PATIENT MOTION, BEST POSSIBLE EXAM.. TECHNIQUE: Multiplanar, multisequence MR images of the brain were obtained. COMPARISON: Head CT 01/20/2021 FINDINGS: BRAIN / INTRACRANIAL CONTENTS: Age-related parenchymal volume loss is demonstrated. Dilatation of the cortical sulci and ventricular system is noted. This is greater than expected for the patient's stat ed age of 65 years. Large regions of encephalomalacia involves much of the right cerebral hemisphere in a right MCA distribution secondary to large remote right MCA infarction. Encephalomalacia is noted along the medial aspect of the left temporal and occipital lobes consistent with remote left posteri or cerebral artery infarction. Diffusion weighted imaging is negative with no indication of acute inf arction identified. Periventricular and deep white matter hyperintensities are noted consistent with age-related microvascular ischemic changes. There is no mass effect. No evidence of intracranial hemo rrhage or extra-axial fluid collection is seen. There is no indication of remote cortical infarction. Diffusion weighted scans are negative. There is no indication of acute ischemic injury. The brainstem and cerebellum have an unremarkable appearance. CRANIOCERVICAL JUNCTION: No abnormalities are identified at the craniocervical junction. VASCULAR FLOW-VOIDS: There is an absence of flow void in the cavernous and petrous segments of the R ICA consistent with occlusion or slow flow. ORBITS: The orbits have an unremarkable appearance. SINUSES / MASTOIDS: Inflammatory changes are present in the right maxillary sinus, right frontal sinu s and anterior ethmoid air cells bilaterally. IMPRESSION: 1. 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 2. Advanced microvascular ischemic change. 3. No acute intracranial abnormalities are identified. Signer Name: Dell Mahoney MD Signed: 01/22/2021 11:23 AM Workstation Name: [id number]
--- NOTE | 2021-01-22 12:46 | Progress Note ---
Assessment and Plan Assessment and plan: 65-year-old male with past medical history of stroke and right-sided weakness was brought to the emergency room because of altered mental status/right facial droop. The patient is being managed for CVA and seizure disorder. #Stroke/CVA #Seizure disorder -Negative CT head Noncon (01/20/2021). Remarkable for multiple infarcts in cortex in several areas of distribution. -TTE with bubble negative for PFO or vegetation; EF 60-65% -MRI brain negative for acute abnormalities. Unable to perform CTA brain with contrast due to lack of line access. Ordering midline and will consider reimaging. -MRA head and neck (01/22/2021) significant for complete occlusion of the petrous and cavernous segments of the right ICA, occlusion of the mid and distal M1 segment of the right MCA as well as itssylvian and opercular branches, evidence of occlusion of the left MOTOR MAN. Will discuss with spouse about overall prognosis given new image findings. Will bring up the topic of hospice. -Pending EEG. -Neurology consulted; appreciate recs -Pending hemoglobin A1c and lipid profile. Continue ASA 325 mg daily. -Currently n.p.o. given aspiration risk. Pending PT/OT/speech therapy yony luation. -Status post IV Ativan 2 mg x 2 in the setting of seizure at bedside. Currently stable. -Status post Keppra 1 g load. Increasing Keppra 1 g twice daily for continued seizures. IV Ativan 2 mg as needed for active seizure. -Continue to monitor #DVT -Prior DVT and currently treated with Eliquis 2.5 mg twice daily -Restarting home Eliquis since CT head Noncon was negative. #Hyperglycemia -Pending hemoglobin A1c -Continue Accu-Cheks every 6 hours since patient is n.p.o.. Blood glucose goal [id number] while inpatient. -Continue to monitor #Hyperlipidemia -Pending lipid panel #Advanced care planning -Disease education conducted, care plan discussed, diagnoses discussed, prognosis discussed, and patient acknowledges understanding with care plan -Time: +40 minutes Disposition Plan: Continue medical management Total Time Spent with Patient (Minutes): 40 minutes History Interval history: No acute events overnight. Hospitalist Physical - Constitutional Vitals: Temp Pulse Resp BP Pulse Ox 99.8 F H 90 18 199/98 100 01/22/21 12:16 01/22/21 12:16 01/22/21 12:16 01/22/21 12:16 01/22/21 12:16 General appearance: Present: no acute distress, well-nourished - EENT Eyes: Present: PERRL, EOM intact ENT: hearing intact, clear oral mucosa, dentition normal - Neck Neck: Present: supple, normal ROM - Respiratory Respiratory effort: normal Respiratory: bilateral: CTA - Cardiovascular Rhythm: regular Heart Sounds: Present: S1 & S2 - Extremities Extremities: no ischemia, pulses intact, pulses symmetrical, No edema, normal temperature, normal color Peripheral Pulses: within normal limits - Abdominal General gastrointestinal: soft, non-tender, non-distended, normal bowel sounds - Integumentary Integumentary: Present: clear, warm, dry - Psychiatric Psychiatric: other (Unresponsive) - Neurologic Neurologic: focal deficits (Left hemiparesis), other (Patient is unresponsive; unable to assess.) - Allied Health Allied health notes reviewed: nursing HEART Score - HEART Score Troponin: Troponin T < 0.010 ng/mL (0.00-0.029) 01/20/21 19:46 Results - Labs CBC & Chem 7: 01/22/21 04:32 01/22/21 04:32 Labs: Laboratory Last Values WBC 7.7 K/mm3 (4.5-11.0) 01/22/21 04:32 RBC 4.20 M/mm3 (3.65-5.03) 01/22/21 04:32 Hgb 13.5 gm/dl (11.8-15.2) 01/22/21 04:32 Hct 41.0 % (35.5-45.6) 01/22/21 04:32 MCV 98 fl (84-94) H 01/22/21 04:32 MCH 32 pg (28-32) 01/22/21 04:32 MCHC 33 % (32-34) 01/22/21 04:32 RDW 13.3 % (13.2-15.2) 01/22/21 04:32 Plt Count 182 K/mm3 (140-440) 01/22/21 04:32 Lymph % (Auto) 14.8 % (13.4-35.0) 01/22/21 04:32 [place] % (Auto) 7.0 % (0.0-7.3) 01/22/21 04:32 Eos % (Auto) 0.6 % (0.0-4.3) 01/22/21 04:32 Baso % (Auto) 0.4 % (0.0-1.8) 01/22/21 04:32 Lymph # (Auto) 1.1 K/mm3 (1.2-5.4) L 01/22/21 04:32 [place] # (Auto) 0.5 K/mm3 (0.0-0.8) 01/22/21 04:32 Eos # (Auto) 0.0 K/mm3 (0.0-0.4) 01/22/21 04:32 Baso # (Auto) 0.0 K/mm3 (0.0-0.1) 01/22/21 04:32 Seg Neutrophils % 77.2 % (40.0-70.0) H 01/22/21 04:32 Seg Neutrophils # 5.9 K/mm3 (1.8-7.7) 01/22/21 04:32 PT 14.5 Sec. (12.2-14.9) 01/20/21 19:46 INR 1.02 (0.87-1.13) 01/20/21 19:46 APTT 28.5 Sec. (24.2-36.6) 01/20/21 19:46 Thrombin Time 18.1 Sec. (15.1-19.6) 01/20/21 19:46 Sodium 142 mmol/L (137-145) 01/22/21 04:32 Potassium 3.5 mmol/L (3.6-5.0) L 01/22/21 04:32 Chloride 106.6 mmol/L (98-107) 01/22/21 04:32 Carbon Dioxide 21 mmol/L (22-30) L 01/22/21 04:32 Anion Gap 18 mmol/L 01/22/21 04:32 BUN 6 mg/dL (9-20) L 01/22/21 04:32 Creatinine 0.7 mg/dL (0.8-1.3) L 01/22/21 04:32 Estimated GFR > 60 ml/min 01/22/21 04:32 BUN/Creatinine Ratio 9 % 01/22/21 04:32 Glucose 124 mg/dL (75-100) H 01/22/21 04:32 POC Glucose 143 mg/dL (70-105) H 01/22/21 11:30 Hemoglobin A1c 6.0 % (4-6) 01/21/21 05:24 Calcium 8.6 mg/dL (8.4-10.2) 01/22/21 04:32 Phosphorus 2.40 mg/dL (2.5-4.5) L 01/22/21 04:32 Magnesium 2.10 mg/dL (1.7-2.3) 01/22/21 04:32 Total Bilirubin 0.30 mg/dL (0.1-1.2) 01/20/21 19:46 AST 15 units/L (5-40) 01/20/21 19:46 ALT 11 units/L (7-56) 01/20/21 19:46 Alkaline Phosphatase 77 units/L (35-129) 01/20/21 19:46 Ammonia 39.0 umol/L (25-60) 01/20/21 19:46 Total Creatine Kinase 71 units/L (55-170) 01/20/21 19:46 CK-MB (CK-2) 1.5 ng/mL (0.0-4.0) 01/20/21 19:46 CK-MB (CK-2) Rel Index 2.1 (0-4) 01/20/21 19:46 Troponin T < 0.010 ng/mL (0.00-0.029) 01/20/21 19:46 Total Protein 8.5 g/dL (6.3-8.2) H 01/20/21 19:46 Albumin 4.6 g/dL (3.9-5) 01/20/21 19:46 Albumin/Globulin Ratio 1.2 % 01/20/21 19:46 Triglycerides 75 mg/dL (2-149) 01/21/21 05:24 Cholesterol 196 mg/dL (50-199) 01/21/21 05:24 LDL Cholesterol Direct 127 mg/dL (50-130) 01/21/21 05:24 HDL Cholesterol 59 mg/dL (40-59) 01/21/21 05:24 Cholesterol/HDL Ratio 3.32 % 01/21/21 05:24 Plasma/Serum Alcohol < 0.01 % (0-0.07) 01/20/21 19:46 Stout/IV: Voiding Method Condom Catheter Active Medications - Current Medications Current Medications: Generic Name Dose Route Start Last Admin Trade Name Freq PRN Reason Stop Dose Admin Acetaminophen 650 mg 01/20/21 21:39 Acetaminophen 325 Mg Tab PO Q4H PRN Pain MILD(1-3)/Fever >100.5/SMYTH Albuterol 2.5 mg 01/20/21 21:39 Albuterol 2.5 Mg/3 Ml Nebu IH Q4HRT PRN Shortness Of Breath Aspirin 325 mg 01/21/21 10:00 01/22/21 11:24 Aspirin 325 Mg Tab PO Not Given QDAY JAON Atorvastatin Calcium 40 mg 01/20/21 22:00 01/21/21 21:51 Atorvastatin 40 Mg Tab PO Not Given QHS JOAN Dextrose 50 ml 01/20/21 21:39 Dextrose 50% In Water (25gm) 50 Ml Syringe IV Q30MIN PRN Hypoglycemia Protocol Enoxaparin Sodium 60 mg 01/22/21 10:00 01/22/21 11:24 Enoxaparin 60 Mg/0.6 Ml Inj SUB-Q 60 mg Q12HR JOAN Administration Famotidine 20 mg 01/20/21 22:00 01/22/21 11:24 Famotidine 20 Mg/2 Ml Inj IV 20 mg BID JOAN Administration Hydralazine HCl 10 mg 01/20/21 23:03 01/22/21 12:24 Hydralazine 20 Mg/1 Ml Inj IV 10 mg Q6H PRN Administration sys >160 Hydromorphone HCl 0.5 mg 01/20/21 21:39 Hydromorphone 1 Mg/1 Ml Inj IV Q3H PRN Pain , Severe (7-10) Sodium Chloride 1,000 mls @ 100 mls/hr 01/20/21 21:45 01/22/21 02:54 Nacl 0.9% 1000 Ml IV 100 mls/hr DIRECT JOAN Administration Levetiracetam 500 mg/ Dextrose 105 mls @ 400 mls/hr 01/21/21 10:00 01/22/21 11:24 IV 400 mls/hr BID JOAN Administration Insulin Human Lispro 0 unit 01/21/21 00:00 01/22/21 12:15 Insulin Lispro 100 Unit/Ml SUB-Q Not Given Q6HR JOAN Protocol Lorazepam 2 mg 11/07/21 09:21 01/21/21 09:33 Lorazepam 2 Mg/Ml Vial IV 2 mg Q4H PRN Administration Seizures Ondansetron HCl 4 mg 01/20/21 21:39 Ondansetron 4 Mg/2 Ml Inj IV Q8H PRN Nausea And Vomiting Oxycodone/Acetaminophen 1 tab 01/20/21 21:39 Oxycodone /Acetaminophen 5-325mg Tab PO Q6H PRN Pain, Moderate (4-6) Sodium Chloride 10 ml 01/20/21 22:00 01/22/21 11:25 Sodium Chloride 0.9% 10 Ml Flush Syringe IV 10 ml BID JOAN Administration Sodium Chloride 10 ml 01/20/21 21:39 Sodium Chloride 0.9% 10 Ml Flush Syringe IV PRN PRN LINE FLUSH Nutrition/Malnutrition Assess - Dietary Evaluation Nutrition/Malnutrition Findings: Nutrition Notes Start: 01/21/21 10:29 Freq: Status: Active Protocol: Document 01/21/21 10:30 (Rec: 01/21/21 10:34 [id number]) Nutrition Notes Need for Assessment generated from: MD Order,Education Initial or Follow up Brief Note Current Diagnosis Stroke Other Pertinent Diagnosis AMS, DM Current Diet NPO Labs/Tests BP 172/68 Subjective/Other Information MD order for diet education. Pt unable to communicate. Spoke with who reports pt recently taken off blood pressure and DM medications by PCP. Pt eats a low salt, low fat, consistent CHO diet at home. She states he has lost weight recently which was intentional, RD encouraged no further weight loss. reports pt needs 1:1 assistance with meals. Nutrition Intervention Follow-Up By: 01/24/21 Additional Comments F/u: intakes and need for ONS
--- NOTE | 2021-01-22 15:49 | Progress Note ---
Subjective Date of service: 01/22/21 Principal diagnosis: CVA Interval history: The patient has been non verbal and unresponsive , was able to move LE on Stimualtion . Increased tone per tech . Reviewed MRI Brain/ MRA My Clinical Suspicion is more towards Seizures secondary to CVA . Continue Keppra for Now Will Check on EEG results if no clinical improvement in 1 day consider repeat EEG Call back with questions . Dr. Braulio HEWITT Objective - Vital Sign Vital Signs - 12hr 01/22/21 01/22/21 01/22/21 03:47 04:44 07:30 Temperature 98.4 F Pulse Rate 85 Respiratory 16 17 Rate Blood Pressure 187/93 O2 Sat by Pulse 87 100 99 Oximetry 01/22/21 01/22/21 01/22/21 07:52 08:00 12:16 Temperature 98.8 F 99.8 F H Pulse Rate 103 H 90 Respiratory 18 18 Rate Blood Pressure 152/75 199/98 O2 Sat by Pulse 99 97 100 Oximetry - Laboratory Findings CBC and BMP: 01/22/21 04:32 01/22/21 04:32 Abnormal Lab Findings: Abnormal Labs 01/20/21 01/20/21 01/21/21 19:46 19:46 01:37 EST Hct 47.1 H MCV 100 H [place] % (Auto) Lymph # (Auto) Seg Neutrophils % 70.3 H Sodium 147 H Potassium Carbon Dioxide BUN Creatinine Glucose 228 H POC Glucose 167 H Phosphorus Total Protein 8.5 H 01/21/21 01/21/21 01/21/21 05:24 05:24 06:36 Hct MCV 98 H [place] % (Auto) 8.0 H Lymph # (Auto) Seg Neutrophils % 75.1 H Sodium Potassium Carbon Dioxide BUN Creatinine Glucose 126 H POC Glucose 122 H Phosphorus Total Protein 01/21/21 01/21/21 01/21/21 11:45 15:37 23:38 Hct MCV [place] % (Auto) Lymph # (Auto) Seg Neutrophils % Sodium Potassium Carbon Dioxide BUN Creatinine Glucose POC Glucose 145 H 131 H 156 H Phosphorus Total Protein 01/22/21 01/22/21 01/22/21 04:32 04:32 05:45 Hct MCV 98 H [place] % (Auto) Lymph # (Auto) 1.1 L Seg Neutrophils % 77.2 H Sodium Potassium 3.5 L Carbon Dioxide 21 L BUN 6 L Creatinine 0.7 L Glucose 124 H POC Glucose 132 H Phosphorus 2.40 L Total Protein 01/22/21 11:30 Hct MCV [place] % (Auto) Lymph # (Auto) Seg Neutrophils % Sodium Potassium Carbon Dioxide BUN Creatinine Glucose POC Glucose 143 H Phosphorus Total Protein
--- NOTE | 2021-01-22 17:44 | Cat Scan Report ---
CTA NECK WITH CONTRAST 01/22/2021 INDICATION / CLINICAL INFORMATION: cva. Extensive chronic ischemic changes. ';and confusion COMPARISON: None. TECHNIQUE: Routine CTA of the neck is performed. 3-D/MIP reformats were postprocessed. Percentage st enosis is determined by direct quantitative measurements of diseased internal carotid artery diameter compared with normal distal internal carotid artery reference segments or by criteria similar to [place]AW[place] CET where applicable. All CT scans at this location are performed using CT dose reduction for ALARA b y means of automated exposure control. CONTRAST: Not provided FINDINGS: Carotid bifurcations: On the right, the proximal internal carotid artery is occluded at the carotid b ifurcation. On the left, atherosclerotic irregularity is present associated with mild narrowing, in t he range of 40-50%. 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 Aortic arch: No significant abnormality. There is evidence of small right pleural effusion, only partially imaged on the edge of the field. IMPRESSION: Proximal right ICA occlusion. 40-50% stenosis at the origin of the left ICA. Signer Name: Ruiz Melton MD Signed: 01/22/2021 5:39 PM Workstation Name: [id number]
--- NOTE | 2021-01-22 17:48 | Cat Scan Report ---
CTA HEAD WITH CONTRAST 01/22/2021 HISTORY: Extensive chronic cortical ischemic injury. And confusion. COMPARISON: MRI brain earlier today. MRA brain earlier today TECHNIQUE: All CT scans at this location are performed using CT dose reduction for ALARA by means of automated exposure control.. 3-D/MIP reformats postprocessed. Percentage stenosis is determined by d irect quantitative measurements of diseased internal carotid artery diameter compared with normal dis evans internal carotid artery reference segments or by criteria similar to NASCET where applicable. 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 Left distal vertebral artery has evidence of atherosclerotic change, and probable moderate steno sis. Basilar artery: No significant abnormality. Posterior cerebral arteries: No definite visualization of left posterior cerebral artery, which corre sponds to an area of chronic ischemic encephalomalacia as seen on prior head CT and MRI. Intracranial internal carotid arteries: Proximal right ICA is occluded, with nonopacification of ICA at the level of the skull base and cavernous sinus. The distal right ICA opacifies, presumably due to [place] of [place] or ophthalmic artery collaterals. Left distal ICA demonstrates some atherosclerotic calcification with no evidence of occlusion or stenosis. Anterior cerebral arteries: Unremarkable Middle cerebral arteries: The right middle cerebral artery does not opacify and is presumably chronic ally occluded, based on the extensive encephalomalacia in the right MCA distribution. Left MCA is unr emarkable. Dural venous sinuses:Not optimally opacified. No significant abnormality. Signer Name: Ruiz Melton MD Signed: 01/22/2021 5:43 PM Workstation Name: [id number]
[2021-01-22] MEDS: levETIRAcetam 1,000 MG in DEXTROSE 5% IN WATER 100 ML IV SCH (22:27)
[2021-01-23] MEDS: INSULIN LISPRO 100 UNIT/ML SUB-Q SCH ×2 (00:23→05:55)
[2021-01-23 06:15] LABS: Basophils % (Auto) 0.8 % (0.0-1.8); Eosinophils # (Auto) 0.1 K/mm3 (0.0-0.4); Hematocrit 35.5 % (35.5-45.6); Hemoglobin 11.5 gm/dl (11.8-15.2); Lymphocytes # (Auto) 1.5 K/mm3 (1.2-5.4); Lymphocytes % (Auto) 29.7 % (13.4-35.0); Mean Corpuscular HGB Conc 33 % (32-34); Mean Corpuscular Volume 98 fl (84-94); Monocytes # (Auto) 0.6 K/mm3 (0.0-0.8); Monocytes % (Auto) 11.1 % (0.0-7.3); Platelet Count 138 K/mm3 (140-440); Red Blood Count 3.62 M/mm3 (3.65-5.03); Red Cell Distribution Width 13.6 % (13.2-15.2)
[2021-01-23 06:36] LABS: BUN/Creatinine Ratio 8; Blood Urea Nitrogen 7 mg/dL (9-20); Calcium 8.2 mg/dL (8.4-10.2); Hemolysis Index 9
--- NOTE | 2021-01-23 08:47 | Discharge Summary ---
Providers - Providers Date of Admission: 01/22/21 13:31 Date of discharge: 01/23/21 Attending physician: EMILIO WOODS MD 01/20/21 21:39 Consult to Dietitian/Nutrition [CONS] Routine Physician Instructions: Reason For Exam: Reason for Consult: Diet education Consult to Physician [CONS] Routine Comment: Consulting Provider: KARISSA MUNOZ Physician Instructions: Reason For Exam: cva Occupational Therapy Evaluate and Treat [CONS] Routine Comment: Reason For Exam: Neuro deficits Physical Therapy Evaluation and Treat [CONS] Routine Comment: Reason For Exam: Neuro deficits 01/21/21 07:50 Speech Therapy Evaluation and Treat [CONS] Routine Reason For Exam: Swallowing evaluation 01/22/21 10:35 Midline [Consult to PICC Line RN] [CONS] Routine Reason For Exam: Unable to get line access Type Line:: Midline 01/22/21 12:35 Consult to Physician [CONS] Routine Comment: Consulting Provider: KEN MADRIGAL Physician Instructions: Reason For Exam: Stroke and seizure management Primary care physician: SHOEMAKING CUTTER Hospitalization Condition: Fair Exam - Constitutional Vitals: Temp Pulse Resp BP Pulse Ox 98.8 F 52 L 18 148/64 100 01/23/21 03:39 01/23/21 03:39 01/23/21 03:39 01/23/21 03:39 01/23/21 03:39 Plan Care Plan Goals: Please follow up with Neurology outpatient, please get a referral from your PCP. Follow up with PCP within 1 week. Start taking Keppra 1000mg twice per day until told otherwise by PCP or Neurologist. Follow up with: PRIMARY CAREMD [Primary Care Provider] - 7 Days Prescriptions: AtorvaSTATin [Lipitor] 40 mg PO QHS 30 Days #30 tablet Apixaban [Eliquis] 5 mg PO Q12H 30 Days #60 tablet levETIRAcetam [Keppra TAB] 1,000 mg PO BID 30 Days #60 tab Aspirin [[place]] 325 mg PO DAILY 30 Days #30 cap
[2021-01-23] MEDS ORDERED: POTASSIUM PHOSPHATE 45 MMOL in SODIUM CHLORIDE 0.9% 500 ML 500 ML IV ONE (10:00)
[2021-01-23] MEDS: levETIRAcetam 1,000 MG in DEXTROSE 5% IN WATER 100 ML IV SCH (11:09)
[2021-01-23] MEDS: ENOXAPARIN 60 MG/0.6 ML INJ SUB-Q SCH (11:09)
[2021-01-23] MEDS: ASPIRIN 325 MG TAB PO SCH (11:10)
[2021-01-23] MEDS: FAMOTIDINE 20 MG/2 ML INJ IV SCH (11:10)
[2021-01-23 12:52] VITALS: BP 147/59
--- NOTE | 2021-01-25 09:36 | Electrocardiograph Report ---
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 Because of movement,difficult to evaluate for ST changes. No previous ECG available for comparison Electronically Signed On 01-25-2021 9:36:28 EST by Seymour Portillo
== END 2021-01-23 14:02 | disposition home health service (06) | DRG 64 ==
LOC: ED 19:18 → 4A 23:13 → INTOOBSV 23:13 → OBSVTOIN 01-22 13:31
PROVIDERS: ADMIT Hospitalist; ATTEND Student in an Organized Health Care Education/Training Program
PROC: 05HA33Z Insertion of Infusion Device into Left Brachial Vein, Percutaneous Approach (ICD-10-PCS; principal; 2021-01-22)
DX: I63.9 Cerebral infarction, unspecified (principal); G93.41 Metabolic encephalopathy; I69.351 Hemiplegia and hemiparesis following cerebral infarction affecting right dominant side; G40.909 Epilepsy, unspecified, not intractable, without status epilepticus; I10 Essential (primary) hypertension; E78.5 Hyperlipidemia, unspecified; R73.9 Hyperglycemia, unspecified
CPT/HCPCS: 36415; 70450; 70496; 70498; 70544; 70551; 80048; 80053; 80061; 80320; 82140; 82550; 82553; 82962; 83036; 83735; 84100; 84484; 85025; 85610; 85670; 85730; 93005; 93306; 94760; 95819; G0378; G0480; J0360; J1650; J1953; J2060; J7030; J7040; Q9967